=== PATIENT | male | born 1935 | race Caucasian/White ===

== ENCOUNTER 2017-10-03 10:05 | Emergency (ER) | payer MEDICARE, BC, OTHER ==
[2017-10-03] MEDS ORDERED: Bacitracin Zinc 1 Packet ONE (10:43)
[2017-10-03] MEDS ORDERED: Adacel (T-DAP) 0.5 ML VIAL ONE (11:57)
== END 2017-10-03 12:15 | disposition home or self-care (01) ==
LOC: ERS 10:05
DX: S00.81XA Abrasion of other part of head, initial encounter (principal); G20 Parkinson's disease; E11.9 Type 2 diabetes mellitus without complications; E78.5 Hyperlipidemia, unspecified; Z79.84 Long term (current) use of oral hypoglycemic drugs; Z79.899 Other long term (current) drug therapy; W01.198A Fall on same level from slipping, tripping and stumbling with subsequent striking against other object, initial encounter
CPT/HCPCS: 90471; 90715

== ENCOUNTER 2018-01-01 12:05 | Outpatient (CLI) | payer MEDICARE, BC, OTHER | END 2018-01-01 12:06 | disposition home or self-care (01) | LOC: BICRAD 12:05 | PROVIDERS: ATTEND Internal Medicine | DX: M54.2 Cervicalgia (principal); M47.892 Other spondylosis, cervical region | CPT/HCPCS: 72040 ==

== ENCOUNTER 2018-01-03 12:07 | Emergency (ER) | payer MEDICARE, BC, OTHER ==
[2018-01-03] MEDS ORDERED: Bacitracin Zinc 1 Packet ONE (12:43)
--- NOTE | 2018-01-03 13:09 | RAD ---
RADIOGRAPH RIGHT ELBOW FOUR VIEWS: HISTORY: An 82-year-old male with posttraumatic right elbow pain from fall. FINDINGS: There is no fracture or dislocation. No high grade degenerative changes. No displaced fat pad sign identified. IMPRESSION: Negative. POS: [facility]
--- NOTE | 2018-01-03 13:11 | RAD ---
RADIOGRAPH RIGHT WRIST THREE VIEWS: HISTORY: An 82-year-old male with acute traumatic right wrist pain from fall. FINDINGS: No fracture is identified. If there is snuffbox tenderness that suggests an occult scaphoid fracture , then the general recommendation is immobilization and follow-up imaging in 5 to 10 days. No disloc ation or subluxation. Moderate DJD at first [facility]. IMPRESSION: 1. Moderate osteoarthrosis of the first carpometacarpal joint. 2. No fracture identified. POS: [facility]
== END 2018-01-03 13:11 | disposition home or self-care (01) ==
LOC: ERS 12:07
DX: S50.311A Abrasion of right elbow, initial encounter (principal); S50.811A Abrasion of right forearm, initial encounter; S60.511A Abrasion of right hand, initial encounter; S80.211A Abrasion, right knee, initial encounter; E11.9 Type 2 diabetes mellitus without complications; E78.5 Hyperlipidemia, unspecified; G20 Parkinson's disease; Z79.84 Long term (current) use of oral hypoglycemic drugs; Z79.899 Other long term (current) drug therapy; W19.XXXA Unspecified fall, initial encounter

== ENCOUNTER 2018-10-03 06:40 | Emergency (ER) | payer MEDICARE, BC, OTHER ==
[2018-10-03] MEDS ORDERED: Bacitracin Zinc 1 Packet ONE (07:34)
== END 2018-10-03 07:42 | disposition home or self-care (01) ==
LOC: ERS 06:40
DX: S51.011A Laceration without foreign body of right elbow, initial encounter (principal); S80.211A Abrasion, right knee, initial encounter; S50.311A Abrasion of right elbow, initial encounter; E11.9 Type 2 diabetes mellitus without complications; G20 Parkinson's disease; E78.5 Hyperlipidemia, unspecified; I10 Essential (primary) hypertension; Z79.84 Long term (current) use of oral hypoglycemic drugs; Z79.899 Other long term (current) drug therapy; W19.XXXA Unspecified fall, initial encounter
CPT/HCPCS: 99283

== ENCOUNTER 2019-07-08 18:27 | Emergency (ER) | payer MEDICARE, BC, OTHER ==
--- NOTE | 2019-07-08 20:01 | RAD ---
Exam:Left elbow 4 views HISTORY: Fall. Pain. COMPARISON: None FINDINGS: Joint spaces are preserved. No joint effusion. No fracture. No malalignment. IMPRESSION: No fracture.
[2019-07-08] MEDS ORDERED: Triple Antibiotic Oint 1 GM Packet ONE (20:16)
== END 2019-07-08 20:33 | disposition home or self-care (01) ==
LOC: ERS 18:27
DX: S51.012A Laceration without foreign body of left elbow, initial encounter (principal); S60.012A Contusion of left thumb without damage to nail, initial encounter; E11.9 Type 2 diabetes mellitus without complications; G20 Parkinson's disease; E78.5 Hyperlipidemia, unspecified; I10 Essential (primary) hypertension; Z79.84 Long term (current) use of oral hypoglycemic drugs; Z79.899 Other long term (current) drug therapy; W18.30XA Fall on same level, unspecified, initial encounter

== ENCOUNTER 2019-12-21 08:25 | Emergency (ER) | payer MEDICARE, BC, OTHER ==
--- NOTE | 2019-12-21 09:10 | CT ---
BRAIN CT WITHOUT IV CONTRAST: Date: 12/21/2019 HISTORY: Syncope. COMPARISON: 03/14/2007. FINDINGS: No focal mass or midline shift. No intra or extra-axial hemorrhage. There is some atrophy and mild ch ronic white matter ischemic change. IMPRESSION: No significant acute intracranial process. No mass or bleed. POS: [facility]
--- NOTE | 2019-12-21 09:20 | RAD ---
CHEST: Date: 12/21/2019 HISTORY: Syncopal episode. COMPARISON: 08/02/2016. FINDINGS: Heart size is within normal limits. The lungs are clear. No confluent pneumonia, overt edema, or pleu ral effusion. IMPRESSION: No significant acute intrathoracic disease. Atherosclerosis of aorta. Stable from prior study. POS: [facility]
[2019-12-21 09:24] LABS: #Eosinphils 0.1 thou/uL (0.0-0.7); #Lymphocytes 0.6 thou/uL (1.20-3.40); #Monocytes 0.4 thou/uL (0.11-0.59); #Neutrophils 3.5 thou/uL (1.40-6.50); %Basophils 0.2 % (0.0-1.0); %Eosinophils 1.2 % (0.0-10.0); %Lymphocytes 12.7 % (21.0-51.0); %Monocytes 8.6 % (0.0-10.0); %Neutrophils 77.3 % (42.0-75.0); Hemoglobin 12.5 g/dL (14.0-18.0); Mean Corpuscular HGB CONC 32.8 g/dL (32.0-36.0); Mean Corpuscular Hemoglobin 31.7 pg (27.0-31.0); Mean Corpuscular Volume 96.8 fL (78.0-98.0); Mean Platelet Volume 7.1 fL (7.4-10.4); Platelet Count 192 thou/uL (130-400); RBC Distribution Width 11.2 % (11.5-14.5); Red Blood Cell (RBC) Count 3.95 mill/uL (4.70-6.10); White Blood Cell (WBC) Count 4.6 thou/uL (4.8-10.8)
[2019-12-21 09:47] LABS: ALT (SGPT) 7 U/L (8-55); AST (SGOT) 17 U/L (5-34); Alkaline Phosphatase 65 U/L (40-110); Anion Gap 12 mmol/L (10-20); BUN (Urea Nitrogen) 13 mg/dL (8.4-25.7); Bilirubin, Total 0.5 mg/dL (0.2-1.2); Calc. Creatinine Clearance 0 mL/min (70-130); Calcium 8.9 mg/dL (7.8-10.44); Carbon Dioxide 29 mmol/L (23-31); Chloride 102 mmol/L (98-107); Estimated GFR-MDRD 72; Glucose 190 mg/dL (83-110); Potassium 4.6 mmol/L (3.5-5.1); Sodium 138 mmol/L (136-145)
[2019-12-21 10:27] LABS: Bilirubin Negative (Negative); Blood, Urine Negative (Negative); Clarity Clear (Clear); Glucose, Urine (Dipstick) Normal (Negative); Leukocyte Negative Leu/uL (Negative); Nitrite Negative (Negative); Protein, Urine (Dipstick) Negative (Neg-Trace); Urobilinogen Normal mg/dL (Less than 2)
== END 2019-12-21 11:31 | disposition left against medical advice (07) ==
LOC: ERS 08:25
DX: R55 Syncope and collapse (principal); D64.9 Anemia, unspecified; E78.00 Pure hypercholesterolemia, unspecified; E11.9 Type 2 diabetes mellitus without complications; I10 Essential (primary) hypertension; G20 Parkinson's disease; Z79.84 Long term (current) use of oral hypoglycemic drugs; Z79.899 Other long term (current) drug therapy
CPT/HCPCS: 36415; 51701; 70450; 71045; 80053; 81003; 84484; 85025; 87086; 93005; 94760

== ENCOUNTER 2020-03-03 08:39 | Emergency (ER) | payer MEDICARE, BC, OTHER ==
[2020-03-03] MEDS ORDERED: Cefepime 2 GM VIAL ONE (08:52)
[2020-03-03 09:02] LABS: #Monocytes 0.4 thou/uL (0.11-0.59); #Neutrophils 4.9 thou/uL (1.40-6.50); %Basophils 0.3 % (0.0-1.0); %Eosinophils 0.4 % (0.0-10.0); %Lymphocytes 15.3 % (21.0-51.0); %Monocytes 6.9 % (0.0-10.0); %Neutrophils 77.1 % (42.0-75.0); Hemoglobin 12.2 g/dL (14.0-18.0); Mean Corpuscular HGB CONC 32.3 g/dL (32.0-36.0); Mean Corpuscular Hemoglobin 31.7 pg (27.0-31.0); Mean Corpuscular Volume 98.2 fL (78.0-98.0); Platelet Count 215 thou/uL (130-400); RBC Distribution Width 11.4 % (11.5-14.5); Red Blood Cell (RBC) Count 3.84 mill/uL (4.70-6.10); White Blood Cell (WBC) Count 6.3 thou/uL (4.8-10.8)
--- NOTE | 2020-03-03 09:17 | RAD ---
CHEST 1 VIEW: Date: 03/03/2020 HISTORY: Altered mental status. COMPARISON: 12/21/2019. FINDINGS: Heart size is within normal limits. The lungs are clear. No confluent pneumonia, overt edema, or pleu ral effusion. IMPRESSION: No significant acute intrathoracic disease. Stable from prior study of 12/21/2019. Atherosclerosis of aorta. POS: [facility]
[2020-03-03 09:24] LABS: ALT (SGPT) Less than 7 U/L (8-55); AST (SGOT) 17 U/L (5-34); Albumin 3.7 g/dL (3.4-4.8); Alkaline Phosphatase 52 U/L (40-110); Anion Gap 16 mmol/L (10-20); BUN (Urea Nitrogen) 17 mg/dL (8.4-25.7); Bilirubin, Total 0.6 mg/dL (0.2-1.2); Calc. Creatinine Clearance 0 mL/min (70-130); Calcium 8.7 mg/dL (7.8-10.44); Carbon Dioxide 24 mmol/L (23-31); Chloride 101 mmol/L (98-107); Estimated GFR-MDRD 84; Globulin 2.3 g/dL (2.4-3.5); Glucose 123 mg/dL (83-110); Magnesium 1.9 mg/dL (1.6-2.6); Potassium 4.3 mmol/L (3.5-5.1); Sodium 137 mmol/L (136-145)
--- NOTE | 2020-03-03 09:44 | CT ---
CT BRAIN WITHOUT CONTRAST: COMPARISON: 12/21/2019. HISTORY: Syncope. TECHNIQUE: Multiple contiguous axial images were obtained in a CT of the brain without contrast. FINDINGS: There are scattered hypodensities in the subcortical and periventricular white matter, likely seconda ry to small-vessel ischemic disease. No large confluent infarction is seen. There is no evidence of hydrocephalus, intracranial hemorrhage, or extraaxial fluid collection. The calvarium and overlying soft tissues are unremarkable. The visualized paranasal sinuses and mast oid air cells are well aerated. IMPRESSION: No evidence of acute intracranial abnormality. POS: [facility]
[2020-03-03 10:58] LABS: Bilirubin Negative (Negative); Blood, Urine Negative (Negative); Clarity Clear (Clear); Glucose, Urine (Dipstick) Normal (Negative); Leukocyte Negative Leu/uL (Negative); Nitrite Negative (Negative); Protein, Urine (Dipstick) Negative (Neg-Trace); Urobilinogen Normal mg/dL (Less than 2)
--- NOTE | 2020-03-04 15:41 | EKG ---
Test Reason : Blood Pressure : / mmHG Vent. Rate : 073 BPM Atrial Rate : 073 BPM P-R Int : 250 ms QRS Dur : 096 ms QT Int : 404 ms P-R-T Axes : 077 074 042 degrees QTc Int : 445 ms Sinus rhythm with 1st degree A-V block Otherwise normal ECG Confirmed by EDA DE LUNA M.D. ([id number]), manager editorial JEREMÍAS CABRERA ([id number]) on 03/04/2020 3:40:44 PM Also confirmed by EDA DE LUNA M.D. ([id number]), manager editorial JEREMÍAS CABRERA ([id number]) on 03/04/2020 3:41:26 PM Referred By: Confirmed By:EDA DE LUNA M.D.
== END 2020-03-03 11:41 | disposition home or self-care (01) ==
LOC: ERS 08:39
DX: R41.82 Altered mental status, unspecified (principal); E11.9 Type 2 diabetes mellitus without complications; E78.00 Pure hypercholesterolemia, unspecified; I10 Essential (primary) hypertension; Z79.84 Long term (current) use of oral hypoglycemic drugs
CPT/HCPCS: 51701; 70450; 71045; 80053; 81003; 82140; 83605; 83735; 84443; 84484; 85025; 87040; 93005; 96360; 96365; J0692

== ENCOUNTER 2020-06-21 07:57 | Outpatient (CLI) | payer MEDICARE, BC, OTHER ==
[2020-06-21 11:23] LABS: PTT 33.2 sec (22.9-36.1); Prothrombin Time 12.8 sec (12.0-14.7)
[2020-06-21 11:30] LABS: Hemoglobin 13.9 g/dL (14.0-18.0); Mean Corpuscular HGB CONC 32.2 g/dL (32.0-36.0); Mean Corpuscular Hemoglobin 31.5 pg (27.0-31.0); Mean Corpuscular Volume 97.8 fL (78.0-98.0); Mean Platelet Volume 7.7 fL (7.4-10.4); Platelet Count 210 thou/uL (130-400); RBC Distribution Width 11.2 % (11.5-14.5); Red Blood Cell (RBC) Count 4.42 mill/uL (4.70-6.10); White Blood Cell (WBC) Count 3.5 thou/uL (4.8-10.8)
[2020-06-21 11:45] LABS: Anion Gap 13 mmol/L (10-20); BUN (Urea Nitrogen) 13 mg/dL (8.4-25.7); Bacteria/HPF None Seen HPF (None Seen); Bilirubin Negative (Negative); Blood, Urine Trace (Negative); Calc. Creatinine Clearance 0 mL/min (70-130); Calcium 9.4 mg/dL (7.8-10.44); Carbon Dioxide 29 mmol/L (23-31); Chloride 102 mmol/L (98-107); Clarity Clear (Clear); Estimated GFR-MDRD 87; Glucose 159 mg/dL (83-110); Glucose, Urine (Dipstick) Normal (Negative); Ketone, Urine Negative (Negative); Leukocyte Negative Leu/uL (Negative); Nitrite Negative (Negative); Potassium 4.8 mmol/L (3.5-5.1); Protein, Urine (Dipstick) Negative (Neg-Trace); RBC/HPF 0-3 HPF (0-3); Sodium 139 mmol/L (136-145); Specific Gravity, Urine 1.013 (1.002-1.036); Squamous Epithelial None Seen HPF (0-3); Urobilinogen Normal mg/dL (Less than 2); WBC/HPF 0-3 HPF (0-3); pH, Urine 5.5 (5.0-9.0)
[2020-06-21 18:06] LABS: SARS-CoV-2 MS2 Positive; SARS-CoV-2 N Gene Negative; SARS-CoV-2 S Gene Negative; SARS-CoV-2 by NAA Not Detected (NotDetected); SARS-CoV-2 orf1ab Negative
--- NOTE | 2020-06-22 20:50 | EKG ---
Test Reason : Blood Pressure : / mmHG Vent. Rate : 064 BPM Atrial Rate : 064 BPM P-R Int : 242 ms QRS Dur : 092 ms QT Int : 396 ms P-R-T Axes : 074 103 058 degrees QTc Int : 408 ms Sinus rhythm with 1st degree A-V block with Premature atrial complexes Rightward axis Incomplete right bundle branch block Borderline ECG No previous ECGs available Confirmed by Anh DANIEL ([id number]) on 06/22/2020 8:50:37 PM Referred By: APRIL Confirmed By:Anh DANIEL
== END 2020-06-21 07:58 | disposition home or self-care (01) ==
LOC: LABBT 07:57
DX: Z01.818 Encounter for other preprocedural examination (principal); N40.1 Benign prostatic hyperplasia with lower urinary tract symptoms; N39.41 Urge incontinence; R68.81 Early satiety; R39.12 Poor urinary stream; G20 Parkinson's disease; M17.0 Bilateral primary osteoarthritis of knee; E66.9 Obesity, unspecified; E11.69 Type 2 diabetes mellitus with other specified complication; Z20.828 Contact with and (suspected) exposure to other viral communicable diseases
CPT/HCPCS: 80048; 81001; 85027; 85610; 85730; 87086; 93005; U0003; 87635; 93010

== ENCOUNTER 2020-06-24 06:12 | Day surgery (SDC) | payer MEDICARE, BC, OTHER ==
[2020-06-23 10:12] VITALS: BMI 29.5
[2020-06-24] MEDS ORDERED: Levofloxacin 500 mg/D5W 100 ml Premix Bag ONE (07:13)
[2020-06-24] MEDS ORDERED: Fentanyl 100 MCG/2 ML VIAL ONE (08:21)
[2020-06-24] MEDS ORDERED: B & O ONE (08:39)
--- NOTE | 2020-06-24 10:14 | OP ---
DATE OF PROCEDURE: 06/24/2020 SERVICE: Urology. PREOPERATIVE DIAGNOSIS: BPH with urinary symptoms. POSTOPERATIVE DIAGNOSIS: BPH with urinary symptoms. PROCEDURE PERFORMED: UroLift with 6 implants. INDICATIONS FOR PROCEDURE: Mr. Kenney is an 84-year-old white male with BPH and urinary complaints. He is currently on medical therapy both for overactive bladder and obstructive symptoms. He would like to get off his medications for obstructive symptoms and possibly try to urinate better. We discussed the UroLift procedure with risks and benefits, and he has agreed to proceed forward. DESCRIPTION OF PROCEDURE: After identification of armband and verification of consent, the patient was brought back to the operating room, where he underwent total intravenous anesthesia. He was then placed in dorsal lithotomy position and prepped and draped in usual sterile fashion. After appropriate time-out, a lubricated 21-Swiss rigid cystoscope with visual obturator was introduced per urethra into the bladder. The prostate was hypertrophic, which had previously been demonstrated on outpatient cystoscopy. The visual obturator was switched out for the UroLift implantation device. The initial implant was placed at the patient's left base of the prostate, taking care to retract the UroLift implant far enough away from the bladder neck to avoid bladder injury. Lateral compression of 20 degrees, an anterior lift was achieved. The safety was released and the blue trigger fired to deploy the Nitinol needle. The tension and capsular end piece were set with a khanna trigger. The UroLift was then advanced forward until the white line was seen in the keyhole and the urethral end piece deployed using the blue trigger. This was then repeated on the patient's right side as well toward the base of the prostate. Two additional implants were placed in the right and left to the apex of the prostate. At this point, the prostate did appear fairly open, however, there were bulges in the midsection of the prostate on either side. These were each pinned back on the left and right along the mid prostate with another UroLift implant, each for a total of 6 implants used. Upon completion, I did feel the prostate was quite wide open. I do not think the patient will have any further obstructive symptoms. The bladder was left full and the UroLift device removed. An 18-Swiss Nichols catheter was placed with ease into the bladder. 10 mL of sterile water placed into the balloon. This was secured with a StatLock. A B and O suppository was placed. The patient was then taken out of positioning, awakened, taken back to Day Stay for recovery in stable condition. COMPLICATIONS: None. ESTIMATED BLOOD LOSS: Minimal. RETAINED TUBES AND DRAINS: An 18-Swiss Nichols catheter to gravity drainage. SPECIMENS: None. IMPLANTS USED: 6. DISPOSITION: The patient will be discharged home with a Nichols catheter. He will present on Saturday for a void trial and subsequent thereafter for a postop check. Job ID: [id number]
[2020-06-24] MEDS ORDERED: EPHEDRINE 25 MG/5 ML SYRINGE ONE (11:30)
[2020-06-24] MEDS ORDERED: Lidocaine 1% PF 5 ML VIAL ONE (11:30)
[2020-06-24] MEDS ORDERED: PROPOFOL 200 MG/20 ML VIAL ONE (11:30)
== END 2020-06-24 11:53 | disposition home or self-care (01) ==
LOC: SDC 06:12
PROVIDERS: ATTEND Urology
PROC: 0T7D8DZ Dilation of Urethra with Intraluminal Device, Via Natural or Artificial Opening Endoscopic (ICD-10-PCS; principal; 2020-06-24)
DX: N40.1 Benign prostatic hyperplasia with lower urinary tract symptoms (principal); N13.8 Other obstructive and reflux uropathy; N32.81 Overactive bladder; I10 Essential (primary) hypertension; E78.5 Hyperlipidemia, unspecified; E11.9 Type 2 diabetes mellitus without complications; K21.9 Gastro-esophageal reflux disease without esophagitis; G89.29 Other chronic pain; M54.9 Dorsalgia, unspecified; Z87.891 Personal history of nicotine dependence; Z79.84 Long term (current) use of oral hypoglycemic drugs; Z79.899 Other long term (current) drug therapy; Z88.0 Allergy status to penicillin
CPT/HCPCS: C1889; J1956; J3010

== ENCOUNTER 2021-01-09 09:38 | Outpatient (CLI) | payer MEDICARE, BC, OTHER | END 2021-01-09 09:39 | disposition home or self-care (01) | LOC: BICMRI 09:38 | PROVIDERS: ATTEND Neurological Surgery | DX: M51.16 Intervertebral disc disorders with radiculopathy, lumbar region (principal); M47.26 Other spondylosis with radiculopathy, lumbar region; M48.061 Spinal stenosis, lumbar region without neurogenic claudication; M48.07 Spinal stenosis, lumbosacral region; M48.16 Ankylosing hyperostosis [Forestier], lumbar region | CPT/HCPCS: 72148 ==

== ENCOUNTER 2021-08-17 17:06 | Inpatient (IN) | payer MEDICARE, BC, OTHER ==
[2021-08-17 17:57] LABS: #Lymphocytes 0.2 thou/uL (1.20-3.40); #Monocytes 0.3 thou/uL (0.11-0.59); %Basophils 0.7 % (0.0-1.0); %Eosinophils 0.3 % (0.0-10.0); %Lymphocytes 3.8 % (21.0-51.0); %Monocytes 5.6 % (0.0-10.0); %Neutrophils 89.6 % (42.0-75.0); Hemoglobin 15.5 g/dL (14.0-18.0); Mean Corpuscular HGB CONC 33.7 g/dL (32.0-36.0); Mean Corpuscular Hemoglobin 32.5 pg (27.0-31.0); Mean Corpuscular Volume 96.3 fL (78.0-98.0); Mean Platelet Volume 7.9 fL (7.4-10.4); Platelet Count 178 thou/uL (130-400); RBC Distribution Width 11.6 % (11.5-14.5); Red Blood Cell (RBC) Count 4.77 mill/uL (4.70-6.10); White Blood Cell (WBC) Count 4.5 thou/uL (4.8-10.8)
[2021-08-17 18:17] LABS: Phosphorus 2.6 mg/dL (2.3-4.7)
[2021-08-17 18:18] LABS: ALT (SGPT) 7 U/L (8-55); AST (SGOT) 19 U/L (5-34); Albumin 4.1 g/dL (3.4-4.8); Alkaline Phosphatase 66 U/L (40-110); Anion Gap 14 mmol/L (10-20); BUN (Urea Nitrogen) 23 mg/dL (8.4-25.7); Bilirubin, Total 0.6 mg/dL (0.2-1.2); CK (CPK) 131 U/L (30-200); Calc. Creatinine Clearance 0 mL/min (70-130); Calcium 9.2 mg/dL (7.8-10.44); Carbon Dioxide 27 mmol/L (23-31); Chloride 100 mmol/L (98-107); Globulin 2.6 g/dL (2.4-3.5); Glucose 288 mg/dL (83-110); Magnesium 1.8 mg/dL (1.6-2.6); Potassium 4.2 mmol/L (3.5-5.1); Protein, Total 6.7 g/dL (5.8-8.1); Sodium 137 mmol/L (136-145)
[2021-08-17 18:35] LABS: Bacteria/HPF None Seen HPF (None Seen); Bilirubin Negative (Negative); Blood, Urine 1+ (Negative); Clarity Clear (Clear); Glucose, Urine (Dipstick) >=1000 mg/dL (Negative); Ketone, Urine 10 mg/dL (Negative); Leukocyte Negative Leu/uL (Negative); Nitrite Negative (Negative); Protein, Urine (Dipstick) 20 mg/dL (Neg-Trace); Squamous Epithelial 0-3 HPF (0-3); Urobilinogen Normal mg/dL (Less than 2); WBC/HPF 0-3 HPF (0-3); pH, Urine 5.5 (5.0-9.0)
[2021-08-17 21:32] LABS: Lactic Acid 1.9 mmol/L (0.5-2.2)
[2021-08-18] MEDS ORDERED: Acetaminophen 325 MG TAB PO PRN (00:05)
[2021-08-18] MEDS ORDERED: Ondansetron PF 4 MG/2 ML Vial IVP PRN (00:05)
[2021-08-18 00:57] VITALS: BMI 33.3
[2021-08-18 05:41] LABS: #Lymphocytes 0.6 thou/uL (1.20-3.40); #Monocytes 0.3 thou/uL (0.11-0.59); #Neutrophils 1.6 thou/uL (1.40-6.50); %Basophils 0.6 % (0.0-1.0); %Eosinophils 1.6 % (0.0-10.0); %Lymphocytes 22.4 % (21.0-51.0); %Monocytes 13.4 % (0.0-10.0); Hemoglobin 13.9 g/dL (14.0-18.0); Mean Corpuscular HGB CONC 33.8 g/dL (32.0-36.0); Mean Corpuscular Volume 94.6 fL (78.0-98.0); Mean Platelet Volume 7.6 fL (7.4-10.4); Platelet Count 166 thou/uL (130-400); RBC Distribution Width 11.4 % (11.5-14.5); Red Blood Cell (RBC) Count 4.33 mill/uL (4.70-6.10); White Blood Cell (WBC) Count 2.6 thou/uL (4.8-10.8)
[2021-08-18 05:57] LABS: Anion Gap 13 mmol/L (10-20); BUN (Urea Nitrogen) 15 mg/dL (8.4-25.7); Calc. Creatinine Clearance 108 mL/min (70-130); Calcium 8.3 mg/dL (7.8-10.44); Carbon Dioxide 27 mmol/L (23-31); Cardiac Risk 2.7 (Less than 4.5); Chloride 103 mmol/L (98-107); Cholesterol 93 mg/dl (< 200 Desired); Glucose 121 mg/dL (83-110); HDL Cholesterol 34 mg/dL (>60 Neg Risk); LDL Cholesterol, Calculated 48 mg/dL; Potassium 3.6 mmol/L (3.5-5.1); Sodium 139 mmol/L (136-145); Triglycerides 56 mg/dL (Less than 150)
[2021-08-18 12:05] LABS: SARS-CoV-2 PCR by NAA Not Detected (NotDetected)
[2021-08-18] MEDS ORDERED: guaiFENesin ER 600 MG TAB PO PRN (14:00)
[2021-08-18] MEDS ORDERED: Atorvastatin Calcium 20 MG TAB PO SCH (21:00)
[2021-08-18] MEDS ORDERED: Gabapentin 100 MG CAP PO SCH (21:00)
[2021-08-18] MEDS: Tamsulosin HCl 0.4 MG CAP PO SCH (21:09)
[2021-08-19 08:17] VITALS: TEMP 98.1
[2021-08-19] MEDS ORDERED: Gabapentin 100 MG CAP PO SCH (09:00)
[2021-08-19] MEDS ORDERED: Aspirin Chewable 81 MG TAB PO SCH (09:00)
[2021-08-19] MEDS: Tamsulosin HCl 0.4 MG CAP PO SCH (09:46)
[2021-08-19] MEDS ORDERED: LEVODOPA PO SCH (13:00)
[2021-08-19] MEDS ORDERED: CARBIDOPA PO SCH (13:00)
[2021-08-19] MEDS ORDERED: [UNRECOGNIZED DRUG - OTHER] PO SCH (13:00)
[2021-08-19 13:55] VITALS: BP 154/65
== END 2021-08-19 13:58 | disposition home health service (06) | DRG 69 ==
LOC: ERS 17:06 → ERHOLD 22:00 → NEURO 08-18 00:43 → OBSVTOIN 08-19 12:37
PROVIDERS: ADMIT Internal Medicine; ATTEND Family Medicine
DX: G45.9 Transient cerebral ischemic attack, unspecified (principal); Z20.822 Contact with and (suspected) exposure to COVID-19; E11.9 Type 2 diabetes mellitus without complications; E78.00 Pure hypercholesterolemia, unspecified; I10 Essential (primary) hypertension; E07.89 Other specified disorders of thyroid; N40.0 Benign prostatic hyperplasia without lower urinary tract symptoms; G20 Parkinson's disease; Z88.0 Allergy status to penicillin; Z79.84 Long term (current) use of oral hypoglycemic drugs; Z98.42 Cataract extraction status, left eye; Z98.41 Cataract extraction status, right eye
CPT/HCPCS: 36415; 36416; 51701; 70450; 70551; 71045; 72141; 80048; 80053; 80061; 81003; 81015; 82550; 83605; 83735; 84100; 84443; 84484; 85025; 87086; 93005; 93306; 93880; G0378; U0003; U0005

== ENCOUNTER 2022-05-28 11:15 | Outpatient (CLI) | payer MEDICARE, BC, OTHER | END 2022-05-28 11:16 | disposition home or self-care (01) | LOC: LABBT 11:15 | PROVIDERS: ATTEND Urology | DX: Z20.822 Contact with and (suspected) exposure to COVID-19 (principal) | CPT/HCPCS: 87811 ==

== ENCOUNTER 2022-05-30 08:13 | Day surgery (SDC) | payer MEDICARE, BC, OTHER ==
[2022-05-25 14:03] VITALS: BMI 31.5
[2022-05-30 08:39] LABS: PTT 29.6 sec (22.9-36.1); Prothrombin Time 13.6 sec (12.0-14.7)
[2022-05-30] MEDS ORDERED: Fentanyl 100 MCG/2 ML VIAL ONE (10:24)
[2022-05-30] MEDS ORDERED: Sodium Bicarbonate 2.5 MEQ/5 ML VIAL ONE (10:24)
[2022-05-30] MEDS ORDERED: Midazolam HCl 2 mg/2 ml Vial ONE (10:24)
[2022-05-30 10:37] VITALS: BP 165/88; TEMP 97.2
== END 2022-05-30 13:35 | disposition home or self-care (01) ==
LOC: CT 08:13
PROVIDERS: ATTEND Urology
PROC: 0T9B30Z Drainage of Bladder with Drainage Device, Percutaneous Approach (ICD-10-PCS; principal; 2022-05-30)
DX: N40.1 Benign prostatic hyperplasia with lower urinary tract symptoms (principal); R33.8 Other retention of urine; R35.0 Frequency of micturition; R39.12 Poor urinary stream; N39.41 Urge incontinence; R39.14 Feeling of incomplete bladder emptying; E11.9 Type 2 diabetes mellitus without complications; I10 Essential (primary) hypertension; G20 Parkinson's disease; M17.0 Bilateral primary osteoarthritis of knee; E66.9 Obesity, unspecified; Z68.31 Body mass index [BMI] 31.0-31.9, adult; Z79.82 Long term (current) use of aspirin; Z79.84 Long term (current) use of oral hypoglycemic drugs; Z79.899 Other long term (current) drug therapy; Z88.0 Allergy status to penicillin
CPT/HCPCS: 51102; 77002; 85610; 85730; J1956; J2250; J3010

== ENCOUNTER 2022-11-06 09:38 | Emergency (ER) | payer MEDICARE, BC, OTHER ==
[~2022-11-06 09:38] MED LIST: Iopamidol-370 76% 500 ML 1 ML ONE
[2022-11-06] MEDS ORDERED: Acetaminophen 325 MG TAB ONE (11:22)
[2022-11-06 11:59] LABS: #Eosinphils 0.1 thou/uL (0.0-0.7); #Lymphocytes 1.2 thou/uL (1.20-3.40); #Monocytes 0.5 thou/uL (0.11-0.59); %Basophils 0.1 % (0.0-1.0); %Eosinophils 0.8 % (0.0-10.0); %Lymphocytes 13.2 % (21.0-51.0); %Monocytes 5.9 % (0.0-10.0); %Neutrophils 80.1 % (42.0-75.0); Hemoglobin 15.4 g/dL (14.0-18.0); Mean Corpuscular HGB CONC 32.7 g/dL (32.0-36.0); Mean Corpuscular Hemoglobin 31.1 pg (27.0-31.0); Mean Platelet Volume 7.9 fL (7.4-10.4); Platelet Count 206 10x3/uL (130-400); RBC Distribution Width 11.9 % (11.5-14.5); Red Blood Cell (RBC) Count 4.96 mill/uL (4.70-6.10); White Blood Cell (WBC) Count 8.7 10x3/uL (4.8-10.8)
[2022-11-06 12:28] LABS: ALT (SGPT) Less than 7 U/L (8-55); AST (SGOT) 21 U/L (5-34); Albumin 4.3 g/dL (3.4-4.8); Alkaline Phosphatase 86 U/L (40-110); Anion Gap 16 mmol/L (10-20); BUN (Urea Nitrogen) 15 mg/dL (8.4-25.7); Bilirubin, Total 0.6 mg/dL (0.2-1.2); Calc. Creatinine Clearance 0 mL/min (70-130); Calcium 9.5 mg/dL (7.8-10.44); Carbon Dioxide 24 mmol/L (23-31); Chloride 103 mmol/L (98-107); Estimated GFR 88; Globulin 2.7 g/dL (2.4-3.5); Glucose 140 mg/dL (83-110); Sodium 139 mmol/L (136-145)
[2022-11-06] MEDS ORDERED: Levofloxacin 500 mg/D5W 100 ml Premix Bag ONE (13:21)
[2022-11-06 13:25] LABS: Bacteria/HPF 4+ HPF (None Seen); Bilirubin Negative (Negative); Blood, Urine 3+ (Negative); Clarity Turbid (Clear); Glucose, Urine (Dipstick) Normal (Negative); Ketone, Urine Negative (Negative); Leukocyte 500 Leu/uL (Negative); Nitrite Negative (Negative); Protein, Urine (Dipstick) 30 mg/dL (Neg-Trace); RBC/HPF Greater than 50 HPF (0-3); Specific Gravity, Urine 1.011 (1.002-1.036); Squamous Epithelial 0-3 HPF (0-3); Urobilinogen Normal mg/dL (Less than 2); WBC/HPF Greater than 50 HPF (0-3)
== END 2022-11-06 14:04 | disposition home or self-care (01) ==
LOC: ERS 09:38
DX: R31.9 Hematuria, unspecified (principal); T83.198A Other mechanical complication of other urinary devices and implants, initial encounter; I10 Essential (primary) hypertension; E78.00 Pure hypercholesterolemia, unspecified; E11.9 Type 2 diabetes mellitus without complications
CPT/HCPCS: 74177; 80053; 81003; 81015; 85025; 87077; 87086; 96374; J1956; Q9967

== ENCOUNTER 2022-12-21 13:15 | Emergency (ER) | payer MEDICARE, BC, OTHER ==
[2022-12-21 14:13] LABS: #Eosinphils 0.1 thou/uL (0.0-0.7); #Lymphocytes 1.3 thou/uL (1.20-3.40); #Monocytes 0.5 thou/uL (0.11-0.59); #Neutrophils 4.3 thou/uL (1.40-6.50); %Basophils 0.3 % (0.0-1.0); %Eosinophils 1.1 % (0.0-10.0); %Lymphocytes 21.7 % (21.0-51.0); %Neutrophils 68.9 % (42.0-75.0); Hemoglobin 13.6 g/dL (14.0-18.0); Mean Corpuscular HGB CONC 32.5 g/dL (32.0-36.0); Mean Corpuscular Hemoglobin 31.3 pg (27.0-31.0); Mean Corpuscular Volume 96.2 fl (78.0-98.0); Mean Platelet Volume 7.6 fL (7.4-10.4); Platelet Count 238 10x3/uL (130-400); Red Blood Cell (RBC) Count 4.34 mill/uL (4.70-6.10); White Blood Cell (WBC) Count 6.2 10x3/uL (4.8-10.8)
[2022-12-21 14:35] LABS: ALT (SGPT) Less than 7 U/L (8-55); AST (SGOT) 17 U/L (5-34); Albumin 3.8 g/dL (3.4-4.8); Alkaline Phosphatase 67 U/L (40-110); Anion Gap 12 mmol/L (10-20); BUN (Urea Nitrogen) 13 mg/dL (8.4-25.7); Bilirubin, Total 0.5 mg/dL (0.2-1.2); Calc. Creatinine Clearance 0 mL/min (70-130); Carbon Dioxide 28 mmol/L (23-31); Chloride 102 mmol/L (98-107); Estimated GFR 78; Globulin 2.6 g/dL (2.4-3.5); Glucose 173 mg/dL (83-110); Potassium 4.2 mmol/L (3.5-5.1); Protein, Total 6.4 g/dL (5.8-8.1); Sodium 138 mmol/L (136-145)
[2022-12-21 15:15] LABS: Bacteria/HPF Rare-Few HPF (None Seen); Bilirubin Negative (Negative); Blood, Urine 3+ (Negative); Clarity Turbid (Clear); Glucose, Urine (Dipstick) Normal (Negative); Ketone, Urine Negative (Negative); Leukocyte 250 Leu/uL (Negative); Nitrite Negative (Negative); Protein, Urine (Dipstick) Negative (Neg-Trace); RBC/HPF Greater than 50 HPF (0-3); Squamous Epithelial None Seen HPF (0-3); Urobilinogen Normal mg/dL (Less than 2); pH, Urine 7.5 (5.0-9.0)
[2022-12-21] MEDS ORDERED: cefTRIAXone\\ROCEPHIN 1 GM VIAL ONE (15:43)
== END 2022-12-21 16:11 | disposition home or self-care (01) ==
LOC: ERS 13:15
DX: N39.0 Urinary tract infection, site not specified (principal); R31.9 Hematuria, unspecified; E11.9 Type 2 diabetes mellitus without complications; I10 Essential (primary) hypertension
CPT/HCPCS: 36415; 80053; 81003; 81015; 85025; 96365; J0696

== ENCOUNTER 2022-12-28 09:24 | Outpatient (CLI) | payer MEDICARE, BC, OTHER | END 2022-12-28 09:25 | disposition home or self-care (01) | LOC: SCSMRI 09:24 | PROVIDERS: ATTEND Specialist | DX: M48.062 Spinal stenosis, lumbar region with neurogenic claudication (principal); M51.26 Other intervertebral disc displacement, lumbar region; M48.07 Spinal stenosis, lumbosacral region; N28.1 Cyst of kidney, acquired; M47.816 Spondylosis without myelopathy or radiculopathy, lumbar region; Z98.890 Other specified postprocedural states | CPT/HCPCS: 72148 ==

== ENCOUNTER 2023-01-04 07:17 | Emergency (ER) | payer OTHER, MEDICARE, BC ==
[2023-01-04 08:28] LABS: #Lymphocytes 0.4 thou/uL (1.20-3.40); #Monocytes 0.6 thou/uL (0.11-0.59); #Neutrophils 4.8 thou/uL (1.40-6.50); %Basophils 0.3 % (0.0-1.0); %Eosinophils 0.2 % (0.0-10.0); %Lymphocytes 7.6 % (21.0-51.0); %Monocytes 10.1 % (0.0-10.0); %Neutrophils 81.8 % (42.0-75.0); Hemoglobin 14.1 g/dL (14.0-18.0); Mean Corpuscular HGB CONC 33.6 g/dL (32.0-36.0); Mean Corpuscular Hemoglobin 32.2 pg (27.0-31.0); Mean Corpuscular Volume 95.8 fl (78.0-98.0); Mean Platelet Volume 7.5 fL (7.4-10.4); Platelet Count 188 10x3/uL (130-400); RBC Distribution Width 11.8 % (11.5-14.5); Red Blood Cell (RBC) Count 4.38 mill/uL (4.70-6.10); White Blood Cell (WBC) Count 5.8 10x3/uL (4.8-10.8)
[2023-01-04 08:50] LABS: INR-International Normal Ratio 1.1; Prothrombin Time 14.5 sec (12.0-14.7)
[2023-01-04 08:51] LABS: PTT 33.6 sec (22.9-36.1)
[2023-01-04 08:56] LABS: ALT (SGPT) 8 U/L (8-55); AST (SGOT) 21 U/L (5-34); Albumin 3.6 g/dL (3.4-4.8); Alkaline Phosphatase 69 U/L (40-110); Anion Gap 12 mmol/L (10-20); BUN (Urea Nitrogen) 17 mg/dL (8.4-25.7); Bilirubin, Total 0.5 mg/dL (0.2-1.2); Calc. Creatinine Clearance 0 mL/min (70-130); Calcium 9.2 mg/dL (7.8-10.44); Carbon Dioxide 25 mmol/L (23-31); Chloride 103 mmol/L (98-107); Estimated GFR 86; Globulin 2.7 g/dL (2.4-3.5); Glucose 163 mg/dL (83-110); Protein, Total 6.3 g/dL (5.8-8.1); Sodium 136 mmol/L (136-145)
== END 2023-01-04 16:43 ==
LOC: ERS 07:17
DX: S70.02XA Contusion of left hip, initial encounter (principal); R53.1 Weakness; I10 Essential (primary) hypertension; E11.9 Type 2 diabetes mellitus without complications; E78.00 Pure hypercholesterolemia, unspecified; G20 Parkinson's disease; W01.0XXA Fall on same level from slipping, tripping and stumbling without subsequent striking against object, initial encounter; Y92.002 Bathroom of unspecified non-institutional (private) residence as the place of occurrence of the external cause; Z79.899 Other long term (current) drug therapy
CPT/HCPCS: 36415; 70450; 71045; 72125; 72170; 72192; 80053; 85025; 85610; 85730; 86850; 86900; 86901; 93005

== ENCOUNTER 2023-06-17 11:18 | Emergency (ER) | payer BC, OTHER ==
[2023-06-17] MEDS ORDERED: Ibuprofen 200 MG TAB ONE (12:30)
[2023-06-17 12:58] LABS: #Monocytes 0.7 thou/uL (0.11-0.59); #Neutrophils 8.5 thou/uL (1.40-6.50); %Basophils 0.1 % (0.0-1.0); %Lymphocytes 5.4 % (21.0-51.0); %Monocytes 7.2 % (0.0-10.0); %Neutrophils 86.7 % (42.0-75.0); Hematocrit 38.9 % (42.0-52.0); Hemoglobin 12.6 g/dL (14.0-18.0); Mean Corpuscular HGB CONC 32.4 g/dL (32.0-36.0); Mean Corpuscular Hemoglobin 29.4 pg (27.0-31.0); Mean Corpuscular Volume 90.9 fl (78.0-98.0); Mean Platelet Volume 9.9 fL (7.4-10.4); Platelet Count 262 10x3/uL (130-400); RBC Distribution Width 13.6 % (11.5-14.5); Red Blood Cell (RBC) Count 4.28 mill/uL (4.70-6.10); White Blood Cell (WBC) Count 9.8 10x3/uL (4.8-10.8)
[2023-06-17 13:22] LABS: ALT (SGPT) Less than 7 U/L (8-55); AST (SGOT) 16 U/L (5-34); Albumin 3.7 g/dL (3.4-4.8); Alkaline Phosphatase 92 U/L (40-110); Anion Gap 14 mmol/L (10-20); BUN (Urea Nitrogen) 18 mg/dL (8.4-25.7); Bilirubin, Total 0.6 mg/dL (0.2-1.2); Calc. Creatinine Clearance 0 mL/min (70-130); Calcium 9.2 mg/dL (7.8-10.44); Carbon Dioxide 24 mmol/L (23-31); Chloride 102 mmol/L (98-107); Estimated GFR 84; Globulin 2.8 g/dL (2.4-3.5); Glucose 196 mg/dL (83-110); Potassium 4.1 mmol/L (3.5-5.1); Protein, Total 6.5 g/dL (5.8-8.1); Sodium 136 mmol/L (136-145)
[2023-06-17 13:49] LABS: Bacteria/HPF 3+ HPF (None Seen); Bilirubin Negative (Negative); Blood, Urine 1+ (Negative); CAUTI Indications for Culture Dysuria,urgency,freq; Clarity Extra Turbid (Clear); Glucose, Urine (Dipstick) Normal (Negative); Ketone, Urine 10 mg/dL (Negative); Leukocyte 500 Leu/uL (Negative); Nitrite 2+ (Negative); Protein, Urine (Dipstick) 600 mg/dL (Neg-Trace); Specific Gravity, Urine 1.014 (1.002-1.036); Squamous Epithelial None Seen HPF (0-3); Urobilinogen Normal mg/dL (Less than 2)
[2023-06-17 13:57] LABS: WBC/HPF 21-50 HPF (0-3)
[2023-06-17 13:58] LABS: Urine Culture Reflex Yes Yes
== END 2023-06-17 14:18 | disposition home or self-care (01) ==
LOC: ERS 11:18
DX: T83.098A Other mechanical complication of other urinary catheter, initial encounter (principal); N39.0 Urinary tract infection, site not specified; E11.9 Type 2 diabetes mellitus without complications; E78.00 Pure hypercholesterolemia, unspecified; I10 Essential (primary) hypertension
CPT/HCPCS: 36415; 51702; 80053; 81001; 85025; 87077; 87086; 87186

== ENCOUNTER 2023-08-02 06:30 | Emergency (ER) | payer MEDICARE, OTHER, BC | END 2023-08-02 10:33 | disposition home or self-care (01) | LOC: ERS 06:30 | DX: T83.028A Displacement of other urinary catheter, initial encounter (principal); I10 Essential (primary) hypertension; E11.9 Type 2 diabetes mellitus without complications | CPT/HCPCS: 51702 ==

== ENCOUNTER 2023-08-13 08:22 | Day surgery (SDC) | payer MEDICARE, BC, OTHER ==
[2023-08-13 08:36] LABS: #Eosinphils 0.1 thou/uL (0.0-0.7); #Monocytes 0.5 thou/uL (0.11-0.59); #Neutrophils 4.5 thou/uL (1.40-6.50); %Basophils 0.5 % (0.0-1.0); %Eosinophils 1.8 % (0.0-10.0); %Lymphocytes 17.2 % (21.0-51.0); %Monocytes 7.4 % (0.0-10.0); %Neutrophils 72.9 % (42.0-75.0); Hematocrit 39.2 % (42.0-52.0); Hemoglobin 12.8 g/dL (14.0-18.0); Mean Corpuscular HGB CONC 32.7 g/dL (32.0-36.0); Mean Corpuscular Hemoglobin 30.3 pg (27.0-31.0); Mean Corpuscular Volume 92.7 fl (78.0-98.0); Mean Platelet Volume 9.2 fL (7.4-10.4); Platelet Count 248 10x3/uL (130-400); RBC Distribution Width 13.3 % (11.5-14.5); Red Blood Cell (RBC) Count 4.23 mill/uL (4.70-6.10); White Blood Cell (WBC) Count 6.1 10x3/uL (4.8-10.8)
[2023-08-13 08:50] LABS: INR-International Normal Ratio 1.1; Prothrombin Time 14.4 sec (12.0-14.7)
[2023-08-13 08:51] LABS: PTT 30.4 sec (22.9-36.1)
[2023-08-13] MEDS ORDERED: Sodium Bicarbonate 2.5 MEQ/5 ML VIAL ONE (09:36)
[2023-08-13] MEDS ORDERED: Lidocaine 1% PF 5 ML VIAL ONE (09:36)
[2023-08-13] MEDS ORDERED: LevoFLOXacin 250 mg/D5W 250 MG in Premix 1 BAG IVPB SCH (09:45)
== END 2023-08-13 13:45 | disposition home or self-care (01) ==
LOC: CT 08:22
PROVIDERS: ATTEND Urology
PROC: 0T9B00Z Drainage of Bladder with Drainage Device, Open Approach (ICD-10-PCS; principal; 2023-08-13)
DX: R33.9 Retention of urine, unspecified (principal); Z88.0 Allergy status to penicillin
CPT/HCPCS: 51102; 77002; 85025; 85610; 85730; C2627; 36415; J1956

== ENCOUNTER 2024-01-03 07:48 | Inpatient (IN) | payer MEDICARE, BC, OTHER ==
[2024-01-03] MEDS ORDERED: cefTRIAXone (ROCEPHIN) 1 GM VIAL ONE (08:07)
[2024-01-03] MEDS ORDERED: Sodium Chloride 0.9% 100 ML ONE (08:08)
[2024-01-03 08:40] LABS: #Basophils Less than 0.0 thou/uL (0.0-0.2); #Eosinphils Less than 0.0 thou/uL (0.0-0.7); #Monocytes 0.4 thou/uL (0.11-0.59); #Neutrophils 15.9 thou/uL (1.40-6.50); %Basophils 0.1 % (0.0-1.0); %Lymphocytes 1.4 % (21.0-51.0); %Monocytes 2.6 % (0.0-10.0); %Neutrophils 95.5 % (42.0-75.0); Hematocrit 43.5 % (42.0-52.0); Hemoglobin 13.9 g/dL (14.0-18.0); Mean Corpuscular Hemoglobin 29.8 pg (27.0-31.0); Mean Corpuscular Volume 93.1 fl (78.0-98.0); Mean Platelet Volume 9.8 fL (7.4-10.4); Platelet Count 361 10x3/uL (130-400); RBC Distribution Width 12.8 % (11.5-14.5); Red Blood Cell (RBC) Count 4.67 mill/uL (4.70-6.10); White Blood Cell (WBC) Count 16.6 10x3/uL (4.8-10.8)
[2024-01-03 08:42] LABS: Critical Call Chem-Lactate NUR.CT6@0842
[2024-01-03 08:43] LABS: ALT (SGPT) 9 U/L (8-55); AST (SGOT) 15 U/L (5-34); Albumin 3.9 g/dL (3.4-4.8); Alkaline Phosphatase 105 U/L (40-110); Anion Gap 17 mmol/L (10-20); BUN (Urea Nitrogen) 29 mg/dL (8.4-25.7); Bilirubin, Total 1.1 mg/dL (0.2-1.2); Calc. Creatinine Clearance 0 mL/min (70-130); Calcium 9.6 mg/dL (7.8-10.44); Carbon Dioxide 23 mmol/L (23-31); Chloride 103 mmol/L (98-107); Estimated GFR 61; Glucose 309 mg/dL (83-110); Lipase 22 U/L (8-78); Magnesium 1.8 mg/dL (1.6-2.6); Protein, Total 6.9 g/dL (5.8-8.1); Sodium 138 mmol/L (136-145)
[2024-01-03 10:19] LABS: Bilirubin Negative (Negative); Blood, Urine Large (Negative); Glucose, Urine (Dipstick) 100 mg/dL (Negative); Ketone, Urine 15 mg/dL (Negative); Leukocyte Moderate (Negative); Nitrite Negative (Negative); Protein, Urine (Dipstick) > or equal to 300 mg/dL (Neg-Trace); Urobilinogen 0.2 mg/dL (Less than 2)
[2024-01-03 10:24] LABS: Influenza A by NAA Not Detected (NotDetected); Influenza B by NAA Not Detected (NotDetected); SARS-CoV-2 NAA Rapid Test Not Detected (NotDetected)
[2024-01-03 10:28] LABS: Clarity Turbid (Clear)
[2024-01-03 10:29] LABS: RBC/HPF Greater than 50 HPF (0-3)
[2024-01-03 10:30] LABS: Bacteria/HPF 2+ HPF (None Seen); CAUTI Indications for Culture Acute Hematuria; Squamous Epithelial 0-3 HPF (0-3); WBC/HPF Greater Than 50 HPF (0-3)
[2024-01-03 10:33] LABS: Urine Culture Reflex Yes Yes
[2024-01-03] MEDS ORDERED: Calcium Carbonate 500 MG ChewTAB PO PRN (12:14)
[2024-01-03] MEDS ORDERED: Ondansetron PF 4 MG/2 ML Vial IVP PRN (12:14)
[2024-01-03] MEDS ORDERED: Senokot S 8.6-50 MG TAB PO PRN (12:14)
[2024-01-03] MEDS ORDERED: Acetaminophen 650 MG Suppository PR PRN (12:14)
[2024-01-03 12:27] LABS: Lactic Acid 1.8 mmol/L (0.5-2.2)
[2024-01-03] MEDS ORDERED: Dextrose 50% Abboject 50 ML SYRINGE SLOW IVP PRN (12:57)
[2024-01-03] MEDS ORDERED: Dextrose 5% in Water 1,000 ML IV PRN (12:57)
[2024-01-03] MEDS ORDERED: Glucagon 1 MG/ML KIT IM PRN (12:57)
[2024-01-03] MEDS: Sodium Chloride 0.9% 1,000 ML IV SCH (16:09)
[2024-01-03] MEDS: Meropenem 1 GM in Sodium Chloride 0.9% 100 ML IVPB SCH ×2 (16:09→23:45)
[2024-01-03] MEDS: Carbidopa/Levodopa CR 50-200 mg Tablet PO SCH (16:53)
[2024-01-03] MEDS: HumaLOG 300 UNITS/3 ML VIAL SC PRN (17:50)
[2024-01-03 18:58] VITALS: BMI 29.5
[2024-01-03] MEDS: Gabapentin 100 MG CAP PO SCH (20:26)
[2024-01-03] MEDS ORDERED: Meropenem 1 GM in Sodium Chloride 0.9% 100 ML IVPB SCH (21:00)
[2024-01-04 04:34] LABS: #Basophils Less than 0.03 10x3/uL (0.0-0.2); #Eosinphils Less than 0.03 10x3/uL (0.0-0.7); %Basophils 0.2 % (0.0-1.0); %Eosinophils 0.1 % (0.0-10.0); %Lymphocytes 6.5 % (21.0-51.0); %Monocytes 7.7 % (0.0-10.0); %Neutrophils 85.1 % (42.0-75.0); Hematocrit 33.7 % (42.0-52.0); Mean Corpuscular HGB CONC 32.6 g/dL (32.0-36.0); Mean Corpuscular Hemoglobin 29.8 pg (27.0-31.0); Mean Corpuscular Volume 91.3 fL (78.0-98.0); Mean Platelet Volume 9.8 fL (7.4-10.4); Platelet Count 253 10x3/uL (130-400); RBC Distribution Width 13.2 % (11.5-14.5); Red Blood Cell (RBC) Count 3.69 mill/uL (4.70-6.10)
[2024-01-04 05:01] LABS: ALT (SGPT) Less than 7 U/L (8-55); AST (SGOT) 12 U/L (5-34); Albumin 3.1 g/dL (3.4-4.8); Alkaline Phosphatase 71 U/L (40-110); Anion Gap 10 mmol/L (10-20); BUN (Urea Nitrogen) 28 mg/dL (8.4-25.7); Bilirubin, Total 0.8 mg/dL (0.2-1.2); Calc. Creatinine Clearance 85 mL/min (70-130); Calcium 8.6 mg/dL (7.8-10.44); Carbon Dioxide 24 mmol/L (23-31); Chloride 111 mmol/L (98-107); Estimated GFR 86; Globulin 2.5 g/dL (2.4-3.5); Glucose 163 mg/dL (83-110); Magnesium 1.8 mg/dL (1.6-2.6); Potassium 3.8 mmol/L (3.5-5.1); Protein, Total 5.6 g/dL (5.8-8.1); Sodium 141 mmol/L (136-145)
[2024-01-04] MEDS ORDERED: Aluminum & Magnesium Hydroxide 60 ML, Lidocaine 2% Viscous Solution 30 ML, diphenhydrAM... SSW PRN (11:09)
[2024-01-04 12:51] LABS: Hematocrit 36.9 % (42.0-52.0); Hemoglobin 11.5 g/dL (14.0-18.0)
[2024-01-05 05:10] LABS: Hematocrit 33.8 % (42.0-52.0); Hemoglobin 10.8 g/dL (14.0-18.0); Mean Corpuscular Hemoglobin 30.1 pg (27.0-31.0); Mean Corpuscular Volume 94.2 fL (78.0-98.0); Mean Platelet Volume 9.9 fL (7.4-10.4); Platelet Count 240 10x3/uL (130-400); RBC Distribution Width 13.1 % (11.5-14.5); Red Blood Cell (RBC) Count 3.59 mill/uL (4.70-6.10)
[2024-01-05 05:32] LABS: Anion Gap 12 mmol/L (10-20); BUN (Urea Nitrogen) 17 mg/dL (8.4-25.7); Calc. Creatinine Clearance 93 mL/min (70-130); Carbon Dioxide 25 mmol/L (23-31); Chloride 107 mmol/L (98-107); Estimated GFR 88; Glucose 165 mg/dL (83-110); Potassium 3.7 mmol/L (3.5-5.1); Sodium 140 mmol/L (136-145)
[2024-01-06 04:25] LABS: Hematocrit 34.5 % (42.0-52.0); Hemoglobin 11.3 g/dL (14.0-18.0); Mean Corpuscular HGB CONC 32.8 g/dL (32.0-36.0); Mean Corpuscular Volume 91.5 fL (78.0-98.0); Mean Platelet Volume 9.6 fL (7.4-10.4); Platelet Count 246 10x3/uL (130-400); RBC Distribution Width 12.8 % (11.5-14.5); Red Blood Cell (RBC) Count 3.77 mill/uL (4.70-6.10)
[2024-01-06 04:41] LABS: Anion Gap 11 mmol/L (10-20); BUN (Urea Nitrogen) 14 mg/dL (8.4-25.7); Calc. Creatinine Clearance 100 mL/min (70-130); Calcium 9.1 mg/dL (7.8-10.44); Carbon Dioxide 28 mmol/L (23-31); Chloride 104 mmol/L (98-107); Estimated GFR 90; Glucose 153 mg/dL (83-110); Potassium 3.5 mmol/L (3.5-5.1); Sodium 139 mmol/L (136-145)
[2024-01-06] MEDS: Amlodipine 5 MG TAB PO SCH (09:29)
[2024-01-07] MEDS: HumaLOG 300 UNITS/3 ML VIAL SC PRN (21:34)
[2024-01-08] MEDS: Trospium 20 MG TAB PO SCH (11:02)
[2024-01-08] MEDS: Acetaminophen 325 MG TAB PO PRN (21:32)
[2024-01-09] MEDS: Memantine 5 MG TAB PO SCH (09:26)
[2024-01-09] MEDS: glipiZIDE XL 10 mg ER.TAB PO SCH (09:56)
[2024-01-09] MEDS: Meropenem 1 GM in Sodium Chloride 0.9% 100 ML IVPB SCH (20:43)
[2024-01-09] MEDS: Donepezil HCl 5 MG TAB PO SCH (20:44)
[2024-01-10 16:38] VITALS: BP 148/75; TEMP 98.3
== END 2024-01-10 18:05 | DRG 698 ==
LOC: SUATTDRO 07:48 → ERS 07:48 → SURG A 12:13
PROVIDERS: ADMIT Internal Medicine; ATTEND Internal Medicine
DX: T83.511A Infection and inflammatory reaction due to indwelling urethral catheter, initial encounter (principal); A41.51 Sepsis due to Escherichia coli [E. coli]; A41.59 Other Gram-negative sepsis; N17.9 Acute kidney failure, unspecified; N39.0 Urinary tract infection, site not specified; N40.0 Benign prostatic hyperplasia without lower urinary tract symptoms; F03.90 Unspecified dementia, unspecified severity, without behavioral disturbance, psychotic disturbance, mood disturbance, and anxiety; E11.65 Type 2 diabetes mellitus with hyperglycemia; G20.A1 Parkinson's disease without dyskinesia, without mention of fluctuations; F02.80 Dementia in other diseases classified elsewhere, unspecified severity, without behavioral disturbance, psychotic disturbance, mood disturbance, and anxiety; N21.0 Calculus in bladder; R31.9 Hematuria, unspecified; N32.89 Other specified disorders of bladder; Z88.0 Allergy status to penicillin; Z79.84 Long term (current) use of oral hypoglycemic drugs; Z79.899 Other long term (current) drug therapy
CPT/HCPCS: 36415; 36416; 71045; 74176; 80048; 80053; 81001; 83605; 83690; 83735; 85025; 85027; 87040; 87077; 87086; 87186; 93005; 96360; 96361; 96365; 97139; J0696; J1815; J2185; J3490; J7050

== ENCOUNTER 2024-05-08 11:40 | Emergency (ER) | payer MEDICARE, BC, OTHER ==
[2024-05-08 12:33] LABS: #Basophils 0.03 10x3/uL (0.0-0.2); %Basophils 0.4 % (0.0-1.0); %Eosinophils 0.4 % (0.0-10.0); %Lymphocytes 17.4 % (21.0-51.0); %Monocytes 7.8 % (0.0-10.0); %Neutrophils 73.6 % (42.0-75.0); Hematocrit 42.9 % (42.0-52.0); Hemoglobin 13.7 g/dL (14.0-18.0); Mean Corpuscular HGB CONC 31.9 g/dL (32.0-36.0); Mean Corpuscular Hemoglobin 28.6 pg (27.0-31.0); Mean Corpuscular Volume 89.6 fL (78.0-98.0); Mean Platelet Volume 9.8 fL (7.4-10.4); Platelet Count 267 10x3/uL (130-400); RBC Distribution Width 13.3 % (11.5-14.5); Red Blood Cell (RBC) Count 4.79 mill/uL (4.70-6.10)
[2024-05-08 12:50] LABS: ALT (SGPT) Less than 5 U/L (8-55); AST (SGOT) 14 U/L (5-34); Albumin 3.8 g/dL (3.4-4.8); Alkaline Phosphatase 105 U/L (40-110); Anion Gap 10 mmol/L (10-20); BUN (Urea Nitrogen) 10 mg/dL (8.4-25.7); Bilirubin, Total 0.7 mg/dL (0.2-1.2); Calc. Creatinine Clearance 0 mL/min (70-130); Calcium 9.6 mg/dL (7.8-10.44); Carbon Dioxide 30 mmol/L (23-31); Chloride 103 mmol/L (98-107); Estimated GFR 85; Glucose 126 mg/dL (83-110); Potassium 4.1 mmol/L (3.5-5.1); Protein, Total 6.8 g/dL (5.8-8.1); Sodium 139 mmol/L (136-145)
[2024-05-08 14:14] LABS: Bacteria/HPF 3+ HPF (None Seen); Bilirubin Negative (Negative); Blood, Urine Trace (Negative); CAUTI Indications for Culture Urological Procedure; Clarity Clear (Clear); Glucose, Urine (Dipstick) Normal (Negative); Ketone, Urine Negative (Negative); Leukocyte 500 Leu/uL (Negative); Nitrite Negative (Negative); Protein, Urine (Dipstick) Negative (Neg-Trace); Specific Gravity, Urine 1.009 (1.002-1.036); Squamous Epithelial None Seen HPF (0-3); Urobilinogen Normal mg/dL (Less than 2); WBC/HPF 21-50 HPF (0-3)
[2024-05-08 14:36] LABS: Urine Culture Reflex Yes Yes
== END 2024-05-08 13:03 | disposition short-term general hospital (02) ==
LOC: ERS 11:40
DX: I10 Essential (primary) hypertension (principal); R54 Age-related physical debility; E11.9 Type 2 diabetes mellitus without complications; G20.A1 Parkinson's disease without dyskinesia, without mention of fluctuations; Z22.8 Carrier of other infectious diseases; Z55.6 Problems related to health literacy; Z79.84 Long term (current) use of oral hypoglycemic drugs; Z79.82 Long term (current) use of aspirin; Z79.899 Other long term (current) drug therapy
CPT/HCPCS: 36415; 80053; 81001; 83605; 85025; 87077; 87086; 87186; 99283

== ENCOUNTER 2024-05-11 13:12 | Emergency (ER) | payer MEDICARE, BC, OTHER ==
[2024-05-11] MEDS ORDERED: Ondansetron PF 4 MG/2 ML Vial ONE (13:34)
[2024-05-11] MEDS ORDERED: Glucagon 1 MG/ML KIT ONE (13:34)
== END 2024-05-11 15:26 ==
LOC: ERS 13:12
DX: R13.10 Dysphagia, unspecified (principal); E11.9 Type 2 diabetes mellitus without complications; I10 Essential (primary) hypertension
CPT/HCPCS: 71045; J1611; J2405; 96374; 96375

== ENCOUNTER 2024-07-19 01:00 | Emergency (ER) | payer MEDICARE, BC, OTHER ==
[2024-07-19 02:08] LABS: Bacteria/HPF 4+ HPF (None Seen); Bilirubin Negative (Negative); Blood, Urine 3+ (Negative); CAUTI Indications for Culture Dysuria,urgency,freq; Clarity Extra Turbid (Clear); Glucose, Urine (Dipstick) Normal (Negative); Ketone, Urine Negative (Negative); Leukocyte 500 Leu/uL (Negative); Nitrite Negative (Negative); Protein, Urine (Dipstick) 50 mg/dL (Neg-Trace); RBC/HPF Greater than 50 HPF (0-3); Specific Gravity, Urine 1.019 (1.002-1.036); Squamous Epithelial None Seen HPF (0-3); Urobilinogen 3 mg/dL (Less than 2); WBC/HPF Greater than 50 HPF (0-3)
[2024-07-19 02:10] LABS: Urine Culture Reflex Yes Yes
[2024-07-19] MEDS ORDERED: Sterile Water 10 ML ONE (03:59)
[2024-07-19] MEDS ORDERED: Ziprasidone 20 MG VIAL ONE (03:59)
== END 2024-07-19 04:14 ==
LOC: ERS 01:00
DX: T83.091A Other mechanical complication of indwelling urethral catheter, initial encounter (principal)
CPT/HCPCS: 81001; 87077; 87086; J3486; 87186; 96372; 99283

== ENCOUNTER 2024-10-11 09:52 | Emergency (ER) | payer MEDICARE, BC, OTHER ==
[2024-10-11 10:44] LABS: #Basophils 0.03 10x3/uL (0.0-0.2); %Basophils 0.5 % (0.0-1.0); %Eosinophils 0.9 % (0.0-10.0); %Lymphocytes 21.1 % (21.0-51.0); %Neutrophils 69.3 % (42.0-75.0); Hematocrit 43.5 % (42.0-52.0); Hemoglobin 14.2 g/dL (14.0-18.0); Mean Corpuscular HGB CONC 32.6 g/dL (32.0-36.0); Mean Corpuscular Hemoglobin 29.8 pg (27.0-31.0); Mean Corpuscular Volume 91.2 fL (78.0-98.0); Mean Platelet Volume 9.2 fL (7.4-10.4); Platelet Count 248 10x3/uL (130-400); RBC Distribution Width 13.1 % (11.5-14.5); Red Blood Cell (RBC) Count 4.77 mill/uL (4.70-6.10)
[2024-10-11 11:02] LABS: Anion Gap 13 mmol/L (10-20); BUN (Urea Nitrogen) 17 mg/dL (8.4-25.7); Calc. Creatinine Clearance 0 mL/min (70-130); Carbon Dioxide 26 mmol/L (23-31); Chloride 106 mmol/L (98-107); Estimated GFR 78; Glucose 165 mg/dL (83-110); Potassium 4.2 mmol/L (3.5-5.1); Sodium 141 mmol/L (136-145)
[2024-10-11 11:55] LABS: Bacteria/HPF 4+ HPF (None Seen); Bilirubin Negative (Negative); Blood, Urine 3+ (Negative); CAUTI Indications for Culture Acute Hematuria; Clarity Turbid (Clear); Glucose, Urine (Dipstick) Normal (Negative); Ketone, Urine Negative (Negative); Leukocyte 500 Leu/uL (Negative); Nitrite 2+ (Negative); Protein, Urine (Dipstick) 20 mg/dL (Neg-Trace); RBC/HPF Greater than 50 HPF (0-3); Specific Gravity, Urine 1.022 (1.002-1.036); Squamous Epithelial 0-3 HPF (0-3); Urobilinogen Normal mg/dL (Less than 2); WBC/HPF Greater than 50 HPF (0-3)
[2024-10-11 11:59] LABS: Urine Culture Reflex Yes Yes
[2024-10-11] MEDS ORDERED: cefTRIAXone (ROCEPHIN) 1 GM VIAL ONE (12:18)
[2024-10-11] MEDS ORDERED: Sodium Chloride 0.9% 100 ML ONE (12:18)
== END 2024-10-11 13:05 | disposition home or self-care (01) ==
LOC: ERS 09:52
DX: N39.0 Urinary tract infection, site not specified (principal); E11.9 Type 2 diabetes mellitus without complications; G20.A1 Parkinson's disease without dyskinesia, without mention of fluctuations; G30.9 Alzheimer's disease, unspecified; Z79.899 Other long term (current) drug therapy
CPT/HCPCS: 80048; 81001; 85025; 87086; J0696; 36415; 87077; 96365

== ENCOUNTER 2024-10-15 13:02 | Emergency (ER) | payer MEDICARE, BC, OTHER ==
[2024-10-15 13:44] LABS: #Basophils 0.03 10x3/uL (0.0-0.2); %Basophils 0.6 % (0.0-1.0); %Eosinophils 2.4 % (0.0-10.0); %Lymphocytes 16.9 % (21.0-51.0); %Monocytes 7.4 % (0.0-10.0); %Neutrophils 72.3 % (42.0-75.0); Hematocrit 44.1 % (42.0-52.0); Hemoglobin 14.4 g/dL (14.0-18.0); Mean Corpuscular HGB CONC 32.7 g/dL (32.0-36.0); Mean Corpuscular Hemoglobin 29.8 pg (27.0-31.0); Mean Corpuscular Volume 91.3 fL (78.0-98.0); Mean Platelet Volume 9.4 fL (7.4-10.4); Platelet Count 247 10x3/uL (130-400); Red Blood Cell (RBC) Count 4.83 mill/uL (4.70-6.10)
[2024-10-15 14:06] LABS: ALT (SGPT) 5 U/L (8-55); AST (SGOT) 14 U/L (5-34); Albumin 3.6 g/dL (3.4-4.8); Alkaline Phosphatase 90 U/L (40-110); Anion Gap 11 mmol/L (10-20); BUN (Urea Nitrogen) 17 mg/dL (8.4-25.7); Bilirubin, Total 0.6 mg/dL (0.2-1.2); Calc. Creatinine Clearance 0 mL/min (70-130); Calcium 8.9 mg/dL (7.8-10.44); Carbon Dioxide 27 mmol/L (23-31); Chloride 103 mmol/L (98-107); Estimated GFR 86; Globulin 3.2 g/dL (2.4-3.5); Glucose 202 mg/dL (83-110); Potassium 4.3 mmol/L (3.5-5.1); Protein, Total 6.8 g/dL (5.8-8.1); Sodium 137 mmol/L (136-145)
== END 2024-10-15 16:08 | disposition home or self-care (01) ==
LOC: ERS 13:02
DX: R82.79 Other abnormal findings on microbiological examination of urine (principal); T83.511A Infection and inflammatory reaction due to indwelling urethral catheter, initial encounter; E11.9 Type 2 diabetes mellitus without complications; Z79.82 Long term (current) use of aspirin; Z79.84 Long term (current) use of oral hypoglycemic drugs; Z79.899 Other long term (current) drug therapy
CPT/HCPCS: 36415; 80053; 85025; 99283

== ENCOUNTER 2024-10-21 14:29 | Emergency (ER) | payer MEDICARE, BC, OTHER ==
[2024-10-21] MEDS ORDERED: Iopamidol-370 76% 500 ML MDV (1 ML CHARGE) ONE (15:55)
[2024-10-21] MEDS ORDERED: Lidocaine 1% PF 5 ML VIAL ONE (17:35)
[2024-10-21] MEDS ORDERED: Bacitracin 1 PK ONE (17:35)
[2024-10-21 17:49] LABS: #Basophils 0.03 10x3/uL (0.0-0.2); %Basophils 0.4 % (0.0-1.0); %Eosinophils 0.7 % (0.0-10.0); %Lymphocytes 21.5 % (21.0-51.0); %Monocytes 7.4 % (0.0-10.0); %Neutrophils 69.9 % (42.0-75.0); Hematocrit 44.7 % (42.0-52.0); Hemoglobin 14.6 g/dL (14.0-18.0); Mean Corpuscular HGB CONC 32.7 g/dL (32.0-36.0); Mean Corpuscular Hemoglobin 29.3 pg (27.0-31.0); Mean Corpuscular Volume 89.8 fL (78.0-98.0); Mean Platelet Volume 9.4 fL (7.4-10.4); Platelet Count 256 10x3/uL (130-400); Red Blood Cell (RBC) Count 4.98 mill/uL (4.70-6.10)
[2024-10-21 18:17] LABS: Calc. Creatinine Clearance 0 mL/min (70-130); Estimated GFR 85
[2024-10-21 18:19] LABS: ALT (SGPT) Less than 5 U/L (8-55); AST (SGOT) 15 U/L (5-34); Alkaline Phosphatase 97 U/L (40-110); Anion Gap 12 mmol/L (10-20); BUN (Urea Nitrogen) 14 mg/dL (8.4-25.7); Bilirubin, Total 0.7 mg/dL (0.2-1.2); CK (CPK) 46 U/L (30-200); Calcium 9.3 mg/dL (7.8-10.44); Carbon Dioxide 29 mmol/L (23-31); Chloride 103 mmol/L (98-107); Globulin 3.1 g/dL (2.4-3.5); Glucose 108 mg/dL (83-110); Potassium 4.1 mmol/L (3.5-5.1); Protein, Total 7.1 g/dL (5.8-8.1); Sodium 140 mmol/L (136-145)
[2024-10-21] MEDS ORDERED: Boostrix 0.5 ML (Tdap) VIAL (>/=7 yrs of age) ONE (19:18)
== END 2024-10-21 19:45 | disposition home or self-care (01) ==
LOC: ERS 14:29
DX: S01.81XA Laceration without foreign body of other part of head, initial encounter (principal); E11.9 Type 2 diabetes mellitus without complications; G20.A1 Parkinson's disease without dyskinesia, without mention of fluctuations; G30.9 Alzheimer's disease, unspecified; F02.80 Dementia in other diseases classified elsewhere, unspecified severity, without behavioral disturbance, psychotic disturbance, mood disturbance, and anxiety; R91.8 Other nonspecific abnormal finding of lung field; M89.50 Osteolysis, unspecified site; W19.XXXA Unspecified fall, initial encounter; Z23 Encounter for immunization; Z79.899 Other long term (current) drug therapy
CPT/HCPCS: 12013; 70450; 71045; 71260; 72125; 74177; 80053; 81001; 82043; 82550; 83036; 84484; 85025; 87086; 90471; 90715; 93005; Q9967